=== PATIENT | male | born 1980 | race Native Hawaiian/Other Pacific Islander ===

== ENCOUNTER 2016-12-17 08:51 | Emergency (ER) | payer OTHER ==
[~2016-12-17] VITALS: Ht 170.2 cm; Wt 77.1 kg
[2016-12-17 09:33] LABS: PLATELET COUNT 278 K/uL (142-355)
== END 2016-12-17 10:45 | disposition home or self-care (01) ==
LOC: ED 08:51
PROVIDERS: Emergency Medicine
DX: L08.9 Local infection of the skin and subcutaneous tissue, unspecified (principal)
CPT/HCPCS: 36415; 85027; 90715; 99283; J0696; J1885

== ENCOUNTER 2020-09-23 11:57 | Emergency (ER) | payer OTHER ==
[~2020-09-23] VITALS: Ht 170.2 cm; Wt 74.7 kg
[2020-09-23 12:58] VITALS: BP 123/79; TEMP 98.4
== END 2020-09-23 12:58 | disposition home or self-care (01) ==
LOC: ED 11:57
DX: S16.1XXA Strain of muscle, fascia and tendon at neck level, initial encounter (principal); M62.838 Other muscle spasm; X50.9XXA Other and unspecified overexertion or strenuous movements or postures, initial encounter; Y92.89 Other specified places as the place of occurrence of the external cause
CPT/HCPCS: 96372; 99283; J1885; J2360

== ENCOUNTER 2022-08-05 17:28 | Emergency (ER) | payer OTHER ==
[~2022-08-05] VITALS: Ht 170.2 cm; Wt 74.8 kg
[2022-08-05 17:38] VITALS: BP 126/83; TEMP 99.6
== END 2022-08-05 19:55 | disposition home or self-care (01) ==
LOC: ED 17:28
DX: S60.222A Contusion of left hand, initial encounter (principal); S61.412A Laceration without foreign body of left hand, initial encounter; W22.8XXA Striking against or struck by other objects, initial encounter; F17.210 Nicotine dependence, cigarettes, uncomplicated
CPT/HCPCS: 96372; 99283; J1885